=== PATIENT | male | born 1955 | race Two or more races ===

== ENCOUNTER 2018-03-05 10:49 | Outpatient (CLI) | payer OTHER ==
[~2018-03-05 10:49] MED LIST: AVAPRO75 MG; LIPITOR20 MG; MVI- INFUVITE A10 ML IV
== END 2018-03-05 11:11 | disposition home or self-care (01) ==
LOC: NUCLEAR 10:49
DX: I65.23 Occlusion and stenosis of bilateral carotid arteries (principal)

== ENCOUNTER 2018-10-17 08:06 | Outpatient (CLI) | payer OTHER | END 2018-10-17 08:12 | disposition home or self-care (01) | LOC: SONOGRAMA 08:06 → MAMO-SONO 08:15 | DX: M19.071 Primary osteoarthritis, right ankle and foot (principal) ==

== ENCOUNTER 2019-08-20 08:22 | Outpatient (CLI) | payer OTHER | END 2019-08-20 09:36 | disposition home or self-care (01) | LOC: SONOGRAMA 08:22 → MAMO-SONO 08-21 08:15 | DX: M75.112 Incomplete rotator cuff tear or rupture of left shoulder, not specified as traumatic (principal) ==

== ENCOUNTER 2019-09-02 07:34 | Outpatient (CLI) | payer OTHER | END 2019-09-02 07:36 | disposition home or self-care (01) | LOC: MRI 07:34 | DX: M75.112 Incomplete rotator cuff tear or rupture of left shoulder, not specified as traumatic (principal) | CPT/HCPCS: 73218 ==

== ENCOUNTER 2021-02-20 15:09 | Outpatient (CLI) | payer OTHER | END 2021-02-20 15:21 | disposition home or self-care (01) | LOC: RAD 15:09 | PROVIDERS: ATTEND Physical Medicine & Rehabilitation | DX: M25.531 Pain in right wrist (principal) ==

== ENCOUNTER 2021-08-21 14:14 | Outpatient (CLI) | payer OTHER | END 2021-08-21 14:21 | disposition home or self-care (01) | LOC: RAD 14:14 | PROVIDERS: ATTEND Physical Medicine & Rehabilitation | DX: M16.12 Unilateral primary osteoarthritis, left hip (principal); M54.50 Low back pain, unspecified ==

== ENCOUNTER 2022-05-21 07:18 | Outpatient (CLI) | payer OTHER | END 2022-05-21 08:31 | disposition home or self-care (01) | LOC: SONOGRAMA 07:18 | PROVIDERS: ATTEND Urology | DX: R31.0 Gross hematuria (principal); N39.0 Urinary tract infection, site not specified ==

== ENCOUNTER 2023-11-27 11:37 | Outpatient (CLI) | payer OTHER | END 2023-11-27 11:48 | disposition home or self-care (01) | LOC: TOM 11:37 | PROVIDERS: ATTEND Internal Medicine Cardiovascular Disease | DX: R10.31 Right lower quadrant pain (principal) | CPT/HCPCS: 74177; Q9965 ==

== ENCOUNTER 2024-09-22 14:24 | Outpatient (CLI) | payer OTHER | END 2024-09-22 14:26 | disposition home or self-care (01) | LOC: RAD 14:24 | PROVIDERS: ATTEND Physical Medicine & Rehabilitation | DX: M17.11 Unilateral primary osteoarthritis, right knee (principal) ==